=== PATIENT | male | born 1990 | race Caucasian/White ===

== ENCOUNTER 2021-07-25 19:43 | Emergency (ER) | payer MEDICARE, MEDICAID ==
[2021-07-25 19:56] VITALS: BP 142/92; PULSE 87
[2021-07-25] MEDS ORDERED: LORazepam 1 MG Tab PO ONE (20:21)
== END 2021-07-25 21:23 | disposition home or self-care (01) ==
LOC: JP.ED 19:43
DX: F93.9 Childhood emotional disorder, unspecified (principal); Z63.0 Problems in relationship with spouse or partner; Z88.2 Allergy status to sulfonamides
CPT/HCPCS: 99282; 99284; A9270-GY

== ENCOUNTER 2023-08-15 11:13 | Emergency (ER) | payer MEDICARE, MEDICAID ==
[2023-08-15 11:37] VITALS: BP 130/97; PULSE 82
[2023-08-15] MEDS ORDERED: Lidocaine 1% with EPINEPHrine 1:100,000 20 ML MDV ONE (12:57)
[2023-08-15] MEDS: Bacitracin Oint 1 GM U/D Packet TOP ONE (13:17)
[2023-08-15] MEDS: Lidocaine 1% with EPINEPHrine 1:100,000 50 ML MDV SUBCUT STA (13:18)
== END 2023-08-15 13:41 | disposition home or self-care (01) ==
LOC: JP.ED 11:13
DX: S61.511A Laceration without foreign body of right wrist, initial encounter (principal); Z88.2 Allergy status to sulfonamides; Z79.899 Other long term (current) drug therapy; W26.8XXA Contact with other sharp object(s), not elsewhere classified, initial encounter
CPT/HCPCS: 12001; 99282